=== PATIENT | male | born 1985 | race Caucasian/White ===

== ENCOUNTER 2024-02-05 09:16 | Emergency (ER) | payer BC ==
[2024-02-05] MEDS ORDERED: Ibuprofen 800 MG TAB ONE (09:48)
== END 2024-02-05 10:30 | disposition home or self-care (01) ==
LOC: MADERS 09:16
DX: S93.402A Sprain of unspecified ligament of left ankle, initial encounter (principal); X50.9XXA Other and unspecified overexertion or strenuous movements or postures, initial encounter